=== PATIENT | male | born 1955 | race Caucasian/White ===

== ENCOUNTER 2017-04-12 18:28 | Emergency (ER) | payer BC ==
[2017-04-12] MEDS ORDERED: IBUPROFEN 800 MG TABLET PO STA (18:40)
--- NOTE | 2017-04-12 18:41 | ED Physician Documentation ---
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 fell against a stump at home just [employer] HAND with isolated upper L arm/ shoulder inj.) Review of Systems Constitutional: denies: Fever, Chills Musculoskeletal: denies: Neck pain, Back pain, Pain with weight bearing Neurologic: denies: Headache, Head injury, LOC PD PAST MEDICAL HISTORY - Present Medications Home Medications: Ambulatory Orders Medication Instructions Recorded Confirmed HYDROcod/ACETAM 5/325 [[place] 5/325] 1 - 2 ea PO Q6H PRN #15 tablet 04/12/17 - Allergies Allergies/Adverse Reactions: Allergies Allergy/AdvReac Type Severity Reaction Status Date / Time No Known Drug Allergies Allergy Verified 04/12/17 18:37 PD ED PE NORMAL - Vitals Vital signs reviewed: Yes - General General: Alert and oriented X 3, No acute distress - Neck Neck: Supple, no meningeal sign, No bony TTP - Respiratory Respiratory: No respiratory distress, Clear bilaterally - Extremities Extremities: Other (Very tender left upper humerus and cannot range it at all. NVI in the arm.) - Neuro Neuro: Alert and oriented X 3, Normal speech - Psych Psych: Normal mood, Normal affect Results - Vitals Vitals: Vital Signs - 24 hr 04/12/17 04/12/17 18:32 19:36 Temperature 36.5 C 36.0 C L Heart Rate 62 51 L Respiratory 16 18 Rate Blood Pressure 125/81 H 114/92 H O2 Saturation 96 99 Oxygen O2 Source Room air - Rads (name of study) L humerus Radiology: EMP read contemporaneously (comminuted displaced humeral head and neck frx) Departure - Departure Disposition: 01 Home, Self Care Clinical Impression: Closed fracture of left proximal humerus Qualifiers: Encounter type: initial encounter Fracture morphology: unspecified fracture morphology Qualified Code(s): S42.202A - Unspecified fracture of upper end of left humerus, initial encounter for closed fracture Condition: Good Record reviewed to determine appropriate education?: Yes Instructions: ED Fx Upper Ext Follow-Up: [facility] [Provider Group] - Within 1 week Prescriptions: HYDROcod/ACETAM 5/325 [[place] 5/325] 1 - 2 ea PO Q6H PRN #15 tablet PRN Reason: Pain Comments: Your blood pressure was elevated today on check in to the emergency department. This does not mean that you have hypertension, it is a common phenomenon to check into the emergency department and have elevated blood pressure. I recommend that you see your primary care physician within the week to have it rechecked when you're feeling better. Do not drink or drive while on narcotic pain medicine. Note that many narcotic pain relievers also contain tylenol/acetaminophen. Please ensure that your total dose of acetaminophen from all sources does not exceed 3 grams (3000mg) per day. You may constipated on this medication, take a stool softener such as "Colace" twice a day while you are on it. Also recommend a [id number]-tja-[id number] laxative such as senna or MiraLAX any day that you do not have a bowel movement. If you received narcotic pain medication in the emergency department, do not drive or operate machinery for the next 24 hours.
[2017-04-12] MEDS ORDERED: IBUPROFEN 800 MG TABLET PO ONE (18:42)
[2017-04-12 19:36] VITALS: BP 114/92
--- NOTE | 2017-04-12 19:39 | XRAY Preliminary Report ---
Exam: XR Humerus LT IMPRESSION: Comminuted, minimally displaced humeral head and neck fracture. [facility] SITE ID: [id number]
--- NOTE | 2017-04-12 19:41 | XRAY Report ---
EXAM: LEFT HUMERUS RADIOGRAPHY EXAM DATE: 04/12/2017 07:09 PM. CLINICAL HISTORY: L arm inj. COMPARISON: None. TECHNIQUE: 2 views. FINDINGS: Bones: Comminuted transverse fracture involving the humeral neck. There are vertical components exten ding into the humeral head and shaft. Displacement of fracture fragments by up to 2-3 mm. Joints: Normal. No effusions or subluxations in the visualized shoulder or elbow joints. Soft Tissues: Normal. No soft tissue swelling. IMPRESSION: Comminuted, minimally displaced humeral head and neck fracture. [facility] Referring Provider Line: [phone] SITE ID: [id number]
== END 2017-04-12 19:52 | disposition home or self-care (01) ==
LOC: ED 18:28
DX: S42.292A Other displaced fracture of upper end of left humerus, initial encounter for closed fracture (principal); S42.352A Displaced comminuted fracture of shaft of humerus, left arm, initial encounter for closed fracture; W01.198A Fall on same level from slipping, tripping and stumbling with subsequent striking against other object, initial encounter; Y92.017 Garden or yard in single-family (private) house as the place of occurrence of the external cause; R03.0 Elevated blood-pressure reading, without diagnosis of hypertension; Z86.12 Personal history of poliomyelitis
CPT/HCPCS: 73060; 99283; A9270